=== PATIENT | female | born 1940 | race African-American/Black ===

== ENCOUNTER 2016-10-03 05:16 | Inpatient (IN) | payer MEDICARE, OTHER ==
[2016-10-03] MEDS ORDERED: NS 1,000 ML IV ONE (05:42)
--- NOTE | 2016-10-03 05:57 | EDPRACDOC ---
- General Information Chief Complaint: Bleeding (Rectal &/or other) Stated Complaint: GI BLEED Time Seen by Provider: 10/03/16 05:30 Information Source: Patient, Family Mode of Arrival: Car Home Medications: Home Medications Aspirin (Enteric Coated) [Ecotrin] 324 mg PO .NOW PRN 06/27/16 Levothyroxine [Synthroid, Levoxyl] 25 mcg PO DAILY 06/27/16 Lisinopril [Prinivil] 20 mg PO DAILY 06/27/16 Nitroglycerin [Nitroquick] 0.4 mg SL .NOW PRN 06/27/16 Pravastatin [Pravachol] 80 mg PO HS 06/27/16 Allergies/Adverse Reactions: Allergies Allergy/AdvReac Type Severity Reaction Status Date / Time No Known Allergies Allergy Verified 10/03/16 05:46 - History of Present Illness Onset: [employer] HPI: PT WOKE UP THIS AM WITH RECTAL BLEEDING. PT SAID IT HAD CLOTS AND BLACK STOOL. Bleeding Duration: Reports: Intermittent Bleeding Description: Reports: After Bowel Movement Recent Use Of: Reports: None Relevant History: Reports: GI Bleed Prehospital Care: Reports: None Pain Severity: None Amount of Blood: Reports: Teaspoon(s) Vomitus: Reports: None Stools: Reports: Bright Red Blood, Tarry Black Associated Signs and Symptoms: Reports: None ED Past Medical History - Patient Medical History Cardiac History: Reports: Hypertension, Hypercholesterolemia GI/ History: Reports: Diverticulosis Psychological History: Denies: Depression Surgical History: Reports: Other (COLON RESECTION, COLOSTOMY PLACEMENT AND REVISION) - Social Medical History Smoking Status: Former smoker ETOH: None Substance Abuse: None Lives In: Home EDM Review of Systems - Review of Systems ROS Negative Except as Marked: Yes All systems reviewed and were negative except as marked Gastrointestinal: Melena, Pain, Other (BRBPR) - Physical Exam Constitutional: Alert (Awake), No apparent distress Oriented to: Time, Person, Place Last recorded Vital Signs: Last Vital Signs Temp 97.6 F 10/03/16 05:43 Pulse 57 L 10/03/16 05:43 Resp 18 10/03/16 05:43 BP 148/78 10/03/16 05:43 Pulse Ox 97 10/03/16 05:43 Oxygen Pulse Oxygen Saturation 97 O2 Device Room Air Oxygen Flow Rate Fraction of Inspired Oxygen ( FIO2) - HEENT Head: Normal ( normocephalic) Eye Exam: Normal (PERRL, EOMI, Sclera white) Oropharynx: Normal (Pharynx:Moist without exudate,Gums-no swelling) ENT EAC: Normal TMJ: Normal Nose: No Symptoms Reported (septum midline) Neck: Normal (FROM, trachea at midline) - Respiratory/Cardiovascular Respiratory: Normal - CTA Cardiovascular: Bradycardia - GI Auscultation: Normal (NABS) Palpation: Normal (Soft,No rebound or guarding, non distended) Tenderness: Non tender Meza's Sign: Negative Rectal Exam: Heme positive stool Stool: Gross Blood, Tarry - Musculoskeletal Back: Normal (Non-Tender) Extremities: Normal (Normal tone, Pulses 2+ No cyanosis or edema, FROM) - Integumentary Skin: Normal, Warm, Dry Lymphatics: Normal (no adenopathy) - Neurologic Memory Impaired: Normal Motor Function: Normal (Normal tone, Pulses 2+ No cyanosis or edema, FROM) Cranial Nerve: Normal (CN II-X11 intact sensation, strength 5/5) Cerebellar: Normal Mood Description: Normal Perception: Normal - Results 10/03/16 06:00 10/03/16 06:00 - EKG EKG #1 EKG Time: 05:55 -: Yes EKG interpreted by me Rate: bpm: [place]: Normal Rhythm: NSR, PACs Block: None Hypertrophy: None ST: Normal - Diagnostic Imaging Abdomen Image interpreted by: Radiologist No acute abnormality noted. - Departure Yes I personally saw and evaluated the patient. Disposition: Admit IP To This Hospital Condition: Fair Final Diagnosis: Acute GI bleeding, Acute post-hemorrhagic anemia Education/Counseling Given To: Patient, Family Member Education/Counseling Given Regarding: Diagnosis, Treatment Referrals: None,No Provider [Primary Care Provider] - One Week Prescriptions: No Action Nitroglycerin [Nitroquick] 0.4 mg SL .NOW PRN PRN Reason: Chest Pain Or Discomfort Levothyroxine [Synthroid, Levoxyl] 25 mcg PO DAILY Aspirin (Enteric Coated) [Ecotrin] 324 mg PO .NOW PRN PRN Reason: Chest Pain Or Discomfort Pravastatin [Pravachol] 80 mg PO HS Lisinopril [Prinivil] 20 mg PO DAILY Decision to Admit Time: 07:14 Decision to admit date: 10/03/16 Decision to admit: from ED - Physician Consulted Hospitalist Provider Called: Emanuel Sawyer GI Provider Called: Lb Blake
[2016-10-03] MEDS ORDERED: PANTOPRAZOLE 40 MG VIAL IV ONE (06:08)
[2016-10-03 06:19] LABS: AUTOMATED BASOPHIL 1.4 % (0-2); AUTOMATED EOSINOPHIL 1.4 % (0-5); AUTOMATED LYMPH 48.5 % (17-44); AUTOMATED MONOCYTE 9.1 % (3-10); AUTOMATED NEUTROPHIL 39.6 % (45-76); MPV 8.9 fL (7.4-10.4)
[2016-10-03 06:31] LABS: PARTIAL THROMB. TIME 22.6 SEC (22-35); PT-INR 1.1
[2016-10-03 06:52] LABS: BLOOD UREA NITROGEN 14 MG/DL (7-17); CALC CORRECTED 9.3 MG/DL (8.4-10.2); CALCIUM 9.2 MG/DL (8.4-10.2); CALCULATED OSMOLALITY 260 MOs/Kg (270-290); CHLORIDE 100 mEq/L (98-107); GLUCOSE 77 MG/DL (70-99); SODIUM LEVEL 135 mEq/L (137-146); TOTAL PROTEIN 7.3 G/DL (6.3-8.2)
[2016-10-03 07:03] LABS: LEUKOCYTES/URINE NEG (NEGATIVE); NITRITE/URINE NEG (NEGATIVE); RBC/URINE 0-2 (0-5); URINE OCCULT BLOOD 2+ (NEG/TRACE); WBC/URINE 0-2 (0-5)
--- NOTE | 2016-10-03 07:13 | DIRPT ---
CLINICAL DATA: Rectal bleeding EXAM: DG ABDOMEN ACUTE W/ 1V CHEST COMPARISON: 06/12/2015 FINDINGS: Cardiac shadow is within normal limits. The lungs are clear bilaterally. No acute bony abnormality is seen. Scattered large and small bowel gas is noted. No free air is seen. Mild fecal material is noted. No definitive impaction is seen. Degenerative changes of lumbar spine are noted. IMPRESSION: No acute abnormality noted. Electronically Signed By: Oniel Ko M.D. On: 10/03/2016 07:10
--- NOTE | 2016-10-03 08:15 | HISTPHYS ---
- Chief Complaint Pt reports went to bathroom this AM, noted black stools in toilet. Son reports blood in stools bright red. - History of Present Illness PT WOKE UP THIS AM WITH RECTAL BLEEDING. PT SAID IT HAD CLOTS AND BLACK STOOL. Bleeding Duration: Reports: Intermittent Bleeding Description: Reports: After Bowel Movement Recent Use Of: Reports: None Relevant History: Reports: GI Bleed Prehospital Care: Reports: None Pain Severity: None Amount of Blood: Reports: Teaspoon(s) Vomitus: Reports: None Stools: Reports: Bright Red Blood, Tarry Black Associated Signs and Symptoms: Reports: None Very pleasant 76-year-old female with underlying dementia who presents from home. She lives with her son and granddaughter. This morning at approximately 2:30 a.m. she got up to use the bathroom and noted stool in the toilet covered with blood with clots. Patient's granddaughter alerted her uncle and he came to checked the situation out. The patient was uncomfortable and confused and he brought her into the emergency department. Her history goes back 12 years when she had a bowel obstruction and required an ostomy. That was eventually reversed and she did well until 2011 when she had a GI bleed. She was hospitalized twice for this GI bleed nucleolar scans were on helpful ultimately the bleeding stopped on its own. I believe that the time they felt it was due to diverticulitis. The patient today denies any fevers or chills she has had no abdominal pain and no diarrhea. Given her clinical situation she will be admitted into the hospital for further evaluation and management. Patient's son says that she has been treated in the past by Dr. Hidalgo. We have no records but Dr. Blake is on-call today. - Medical History Cardiac History: Reports: Hypertension, Hypercholesterolemia GI/ History: Reports: Diverticulosis Systemic History: Reports: Hypothyroidism Neurological History: Reports: Dementia (Very mild) Psychological History: Denies: Depression Patient also with a history of bowel obstruction requiring surgery and reversal as below. And episodes of diverticulitis. - Surgical History Reports: Other (COLON RESECTION, COLOSTOMY PLACEMENT AND REVISION) - Medictions/Allergies Allergies No Known Allergies Allergy (Verified 10/03/16 05:46) Current Medication List: Reviewed Home Medications Aspirin (Enteric Coated) [Ecotrin] 324 mg PO .NOW PRN 06/27/16 Levothyroxine [Synthroid, Levoxyl] 25 mcg PO DAILY 06/27/16 Lisinopril [Prinivil] 20 mg PO DAILY 06/27/16 Nitroglycerin [Nitroquick] 0.4 mg SL .NOW PRN 06/27/16 Pravastatin [Pravachol] 80 mg PO HS 06/27/16 - Family History Reports: No Significant History - Social History Travel Outside of [place] in the Last 3 Months?: No Smoking Status: Former smoker Social History: Denies: Alcohol Use, Substance Use Disorder - Review of Systems Constitutional: No Symptoms Reported (No Fever, chills, wt loss/gain, diaphoresis,fatigue/malaise.) Eyes: No Symptoms Reported (No blurry vision, visual changes, eye pain, or eye redness.) Ears: No Symptoms Reported (No ear pain or discharge) Nose: No Symptoms Reported (No nasal discharge/congestion or bleeding) Throat/Neck: No Symptoms Reported (No throat pain or swelling.No oropharyngeal lesions or erythema.) Respiratory: No Symptoms Reported (No cough, wheezing, or shortness of breath.) Cardiovascular: No Symptoms Reported (No chest pain or palpitations.) Genitourinary: No Symptoms Reported (No dysuria or hematuria.) Neurological: Memory Changes Musculoskeletal:: No Symptoms Reported Integumentary: No Symptoms Reported (no rashes or lesions) Allergic/Immunologic: No Symptoms Reported (no rashes or lesions) Hematologic: No Symptoms Reported (No chronic anemia, bleeding, or easy bruising.), Other (Lymphatics- no lymph node swelling or pain.) Endocrine: No Symptoms Reported (No thyroid issues, polyuria, or polydipsia.) Psychiatric: No Symptoms Reported (Fully oriented, with normal and appropriate affect.) - Physical Exam Vital Signs: Initial Vitals Temperature 97.6 F 10/03/16 05:43 Pulse Rate 57 L 10/03/16 05:43 Respiratory Rate 18 10/03/16 05:43 Blood Pressure 148/78 10/03/16 05:43 Pulse Oxygen Saturation 97 10/03/16 05:43 Constitutional: Cachectic. negative: Well nourished, Well appearing Oriented to: Time, Person, Place - HEENT Head: Normal (normocephalic, atraumatic.), Other (No cervical lymphadenopathy. No supraclavicular lymphadenopathy. Neck: No palpable mass, supple , trachea midline.) Eye: Normal (pupils equal, reactive to light, and round; EOMI, Sclera white) Oropharynx: Normal (Pharynx: Moist without exudate,Gums-no swelling, No oropharyngeal lesions or erythema, Mucous membranes are dry.) Nose: No Symptoms Reported (septum midline, Nares patent, without discharge or bleeding.) Respiratory: Normal - CTA (Clear to auscultation bilaterally. No wheezing, rales , rhonchi. Chest wall movements are symmetric. No use of accessory muscles to breathe.) Cardiovascular: Normal (RRR , Normal S1, S2. No murmurs, rubs, or gallops. PMI non-displaced. Carotids: no carotid bruits. No bradycardia or tachycardia. DP pulses 2+ bilaterally.) - GI Auscultation: Normal (normal active sounds) Palpation: Normal (Soft,non distended,nontender. No hepatosplenomegaly.) Tenderness: Non tender (No rebound or guarding) Meza's Sign: Negative - Musculoskeletal Back: Normal (Non-Tender) Extremities: Normal (Normal tone, DP pulses 2+ bilaterally, No cyanosis or edema bilaterally, FROM bilaterally.) - Integumentary Skin: Normal (Clean, dry, and intact. No rashes. No lesions.) Lymphatics: Normal (No cervical lymphadenopathy. No supraclavicular lymphadenopathy.) - Neurologic Memory Impaired: Normal Motor Function: Normal (Motor 5/5 throughout.Normal tone, Pulses 2+ No cyanosis or edema, FROM) Cranial Nerve: Normal (CN II-XII intact sensation, strength 5/5) Cerebellar: Normal (Babinski: toes downgoing bilaterally. Intact Finger to nose. Sensory grossly intact to light touch. Intact rapid alternating movements bilaterally. No pronator drift.) Mood Description: Normal (Fully oriented. Normal and appropriate affect.) Perception: Normal (Normal and appropriate affect.) - Other Exam Other Exam Findings: Laboratory Results - last 24 hr 10/03/16 10/03/16 10/03/16 06:00 06:00 06:00 WBC 3.7 L RBC 3.11 L Hgb 9.3 L Hct 27.4 L MCV 88 MCH 30.1 MCHC 34.1 RDW 15.4 H Plt Count 289 MPV 8.9 Neut % (Auto) 39.6 L Lymph % (Auto) 48.5 H [place] % (Auto) 9.1 Eos % (Auto) 1.4 Baso % (Auto) 1.4 Absolute Neuts (auto) 1.44 L Absolute Lymphs (auto) 1.78 PT 10.8 INR 1.1 APTT 22.6 Sodium 135 L Potassium 3.9 Chloride 100 Carbon Dioxide 27 Anion Gap 12 BUN 14 Creatinine 1.00 Estimated GFR (MDRD) > 60 Glucose 77 Calculated Osmolality 260 L Calcium 9.2 Corrected Calcium 9.3 Total Bilirubin 0.6 AST 31 ALT 28 Alkaline Phosphatase 55 Troponin I < 0.01 Total Protein 7.3 Albumin 3.9 Urine Color Urine Clarity Urine pH Ur Specific [place] Urine Protein Urine Glucose (UA) Urine Ketones Urine Occult Blood Urine Nitrite Urine Bilirubin Urine Urobilinogen Ur Leukocyte Esterase Urine RBC Urine WBC Ur Epithelial Cells Urine Bacteria Blood Type Antibody Screen 10/03/16 10/03/16 06:00 06:41 WBC RBC Hgb Hct MCV MCH MCHC RDW Plt Count MPV Neut % (Auto) Lymph % (Auto) [place] % (Auto) Eos % (Auto) Baso % (Auto) Absolute Neuts (auto) Absolute Lymphs (auto) PT INR APTT Sodium Potassium Chloride Carbon Dioxide Anion Gap BUN Creatinine Estimated GFR (MDRD) Glucose Calculated Osmolality Calcium Corrected Calcium Total Bilirubin AST ALT Alkaline Phosphatase Troponin I Total Protein Albumin Urine Color Pale yellow Urine Clarity Clear Urine pH 8.0 Ur Specific [place] 1.005 Urine Protein Neg Urine Glucose (UA) Neg Urine Ketones Neg Urine Occult Blood 2+ H Urine Nitrite Neg Urine Bilirubin Neg Urine Urobilinogen <2.0 Ur Leukocyte Esterase Neg Urine RBC 0-2 Urine WBC 0-2 Ur Epithelial Cells Occ Urine Bacteria Few Blood Type AB POSITIVE Antibody Screen Negative - Focused CV Perfusion Exam Vital Signs: Last Vital Signs Temp 97.6 F 10/03/16 05:43 Pulse 76 10/03/16 07:52 Resp 20 10/03/16 07:52 BP 171/94 10/03/16 07:52 Pulse Ox 98 10/03/16 07:52 - Lab Results Laboratory Results - last 24 hr 10/03/16 10/03/16 10/03/16 06:00 06:00 06:00 WBC 3.7 L RBC 3.11 L Hgb 9.3 L Hct 27.4 L MCV 88 MCH 30.1 MCHC 34.1 RDW 15.4 H Plt Count 289 MPV 8.9 Neut % (Auto) 39.6 L Lymph % (Auto) 48.5 H [place] % (Auto) 9.1 Eos % (Auto) 1.4 Baso % (Auto) 1.4 Absolute Neuts (auto) 1.44 L Absolute Lymphs (auto) 1.78 PT 10.8 INR 1.1 APTT 22.6 Sodium 135 L Potassium 3.9 Chloride 100 Carbon Dioxide 27 Anion Gap 12 BUN 14 Creatinine 1.00 Estimated GFR (MDRD) > 60 Glucose 77 Calculated Osmolality 260 L Calcium 9.2 Corrected Calcium 9.3 Total Bilirubin 0.6 AST 31 ALT 28 Alkaline Phosphatase 55 Troponin I < 0.01 Total Protein 7.3 Albumin 3.9 Urine Color Urine Clarity Urine pH Ur Specific [place] Urine Protein Urine Glucose (UA) Urine Ketones Urine Occult Blood Urine Nitrite Urine Bilirubin Urine Urobilinogen Ur Leukocyte Esterase Urine RBC Urine WBC Ur Epithelial Cells Urine Bacteria Blood Type Antibody Screen 10/03/16 10/03/16 06:00 06:41 WBC RBC Hgb Hct MCV MCH MCHC RDW Plt Count MPV Neut % (Auto) Lymph % (Auto) [place] % (Auto) Eos % (Auto) Baso % (Auto) Absolute Neuts (auto) Absolute Lymphs (auto) PT INR APTT Sodium Potassium Chloride Carbon Dioxide Anion Gap BUN Creatinine Estimated GFR (MDRD) Glucose Calculated Osmolality Calcium Corrected Calcium Total Bilirubin AST ALT Alkaline Phosphatase Troponin I Total Protein Albumin Urine Color Pale yellow Urine Clarity Clear Urine pH 8.0 Ur Specific [place] 1.005 Urine Protein Neg Urine Glucose (UA) Neg Urine Ketones Neg Urine Occult Blood 2+ H Urine Nitrite Neg Urine Bilirubin Neg Urine Urobilinogen <2.0 Ur Leukocyte Esterase Neg Urine RBC 0-2 Urine WBC 0-2 Ur Epithelial Cells Occ Urine Bacteria Few Blood Type AB POSITIVE Antibody Screen Negative - Assessment (1) Acute GI bleeding K92.2 - GASTROINTESTINAL HEMORRHAGE, UNSPECIFIED Acute Present on Admission: Yes Dr. Blake has been consulted will evaluate the patient in the hospital. Will check serial H&Hs and monitor stools closely for further bleeding. (2) Acute post-hemorrhagic anemia D62 - ACUTE POSTHEMORRHAGIC ANEMIA Acute Present on Admission: Yes Follow serial H&Hs. (3) Diverticulosis K57.90 - DVRTCLOS OF INTEST, PART UNSP, W/O PERF OR ABSCESS W/O BLEED Acute Present on Admission: Yes Qualifiers: Diverticulosis site: diverticulosis of large intestine Diverticulosis bleeding: diverticulosis with bleeding Qualified Code(s): K57.31 - Diverticulosis of large intestine without perforation or abscess with bleeding Patient currently bleeding she does have a history of diverticulosis and this could potentially be a diverticular bleed. Will monitor closely (4) Hypothyroidism E03.9 - HYPOTHYROIDISM, UNSPECIFIED Acute Qualifiers: Hypothyroidism type: acquired Qualified Code(s): E03.9 - Hypothyroidism, unspecified Continue to monitor check TSH. (5) Mild dementia F03.90 - UNSPECIFIED DEMENTIA WITHOUT BEHAVIORAL DISTURBANCE Acute Present on Admission: Yes Stable. - Plan Patient be admitted into the hospital for further evaluation and management of GI bleeding. Case Care Discussed with: Patient, Family, Nursing Staff Total Time: 45 minutes Critical Care: No Couseling Time (>50% in counseling/coordination): No
[2016-10-03] MEDS ORDERED: ONDANSETRON HCL 4 MG/2 ML VIAL IV PRN (08:30)
[2016-10-03] MEDS ORDERED: ACETAMINOPHEN 325 MG/TAB TABLET PO PRN (08:30)
[2016-10-03] MEDS ORDERED: Aluminum;Magnesium;Simethicone 30 ML UDC PO PRN (08:30)
[2016-10-03] MEDS ORDERED: SODIUM CHLORIDE 0.9% 3 ML FLUSH FLUSH PRN (08:30)
[2016-10-03] MEDS ORDERED: Vaccine Screening Complete SCH (10:00)
[2016-10-03] MEDS: NS 1,000 ML IV SCH ×2 (12:15→15:28)
[2016-10-03] MEDS: SODIUM CHLORIDE 0.9% 3 ML FLUSH FLUSH SCH (14:02)
[2016-10-03] MEDS ORDERED: MORPHINE 2 MG/ML INJECTION IV PRN (15:57)
[2016-10-03] MEDS: ALPRAZOLAM 0.25 MG TAB PO PRN (17:15)
[2016-10-04] MEDS: NS 1,000 ML IV SCH ×2 (04:31→16:16)
[2016-10-04] MEDS: SODIUM CHLORIDE 0.9% 3 ML FLUSH FLUSH SCH ×2 (04:32→18:22)
[2016-10-04 06:01] VITALS: BMI 19.3
[2016-10-04 07:12] LABS: AUTOMATED BASOPHIL 1.7 % (0-2); AUTOMATED EOSINOPHIL 4.1 % (0-5); AUTOMATED LYMPH 49.9 % (17-44); AUTOMATED MONOCYTE 10.5 % (3-10); AUTOMATED NEUTROPHIL 33.8 % (45-76); MPV 9.2 fL (7.4-10.4)
[2016-10-04 07:18] LABS: PARTIAL THROMB. TIME 21.7 SEC (22-35); PT-INR 1.1
[2016-10-04 07:37] LABS: BLOOD UREA NITROGEN 11 MG/DL (7-17); CALCIUM 8.2 MG/DL (8.4-10.2); CALCULATED OSMOLALITY 266 MOs/Kg (270-290); CHLORIDE 108 mEq/L (98-107); GLUCOSE 76 MG/DL (70-99); SODIUM LEVEL 139 mEq/L (137-146)
[2016-10-04] MEDS ORDERED: FLU VACCINE (Afluria) 0.5 ML DOSE IM ONE (08:00)
[2016-10-04] MEDS ORDERED: PNEUMOCOCCAL 0.5 ML VIAL IM ONE (08:00)
[2016-10-04] MEDS ORDERED: DIPHENHYDRAMINE 50 MG/ML VIAL IV ONE (08:31)
[2016-10-04] MEDS ORDERED: ACETAMINOPHEN 325 MG/TAB TABLET PO ONE (08:31)
[2016-10-04] MEDS: LEVOTHYROXINE 25 MCG (0.025 MG) TAB PO SCH (09:10)
--- NOTE | 2016-10-04 11:14 | GENMEDPROG ---
Subjective Note: Patient with no new complaints. Hemoglobin dropped overnight she had several bloody bowel movements. Notes Reviewed: Yes Events from last night noted and discussed with Clinical Staff Current Medication List: Reviewed Currently: Denies: Constipation, Diarrhea, Nausea and Vomiting, Abdominal Pain, Ambulating DVT Prophylaxis: Yes - Physical Examination Vital Signs and I&O: Last Vital Signs Temp 98.3 F 10/04/16 09:49 Pulse 69 10/04/16 09:49 Resp 19 10/04/16 09:49 BP 134/60 10/04/16 09:49 Pulse Ox 100 10/04/16 09:49 Oxygen Pulse Oxygen Saturation 100 O2 Device Room Air Oxygen Flow Rate Fraction of Inspired Oxygen ( FIO2) Intake & Output 10/01/16 10/02/16 10/03/16 10/04/16 23:59 23:59 23:59 23:59 Intake Total 2088 694 Output Total 1700 1550 Balance 388 -856 Patient's weight 47.899 kg 46.38 kg General: Alert, Oriented x3, No acute distress, Well appearing, Well nourished HEENT: Normal (Normocephalic, atraumatic;EOMI.Sclera white, Nares patent, without discharge or bleeding. No oropharyngeal lesions or erythema. Mucous membranes are dry.) Neck: Non-tender, Full range of motion, Normal Trachea alignment, Normal inspection (No cervical lymphadenopathy. No supraclavicular lymphadenopathy.), No Masses palpable, Supple Lymphatics: Normal (No cervical lymphadenopathy. No supraclavicular lymphadenopathy.) Respiratory: Normal - CTA (Clear to auscultation bilaterally. No wheezing, rales , rhonchi. Chest wall movements are symmetric. No use of accessory muscles to breathe.) Cardiovascular: Regular rate and rhythm (No bradycardia or tachycardia), Normal S1, No Gallops,Rubs/Murmurs, Normal S2, Good Pedal Pulses (DP pulses 2+ bilaterally) GI: Normal bowel sounds, Soft, Non tender, No hepatospenomegaly, No masses Extremities/Musculoskeletal: Normal pulses (DP pulses 2+ bilaterally) Skin: Warm,Dry and Intact, No rashes, No significant lesion Neurological: Strength at 5/5 X4 ext (Motor 5/5 throughout.), Normal tone, Cranial nerves 3-12 NL ( 2-12 grossly intact.) Lab/DI/Studies Reviewed: Abnormal Lab Results 10/03/16 10/03/16 10/03/16 06:00 15:47 16:20 RBC Hgb 8.5 L Hct 25.8 L RDW Neut % (Auto) Lymph % (Auto) [place] % (Auto) Absolute Neuts (auto) PT APTT Chloride Calculated Osmolality Calcium Stool Occult Blood Pos H Crossmatch See Detail 10/04/16 10/04/16 10/04/16 06:17 06:17 06:17 RBC 2.39 L Hgb 7.2 L D Hct 21.3 L RDW 15.6 H Neut % (Auto) 33.8 L Lymph % (Auto) 49.[address] [place] % (Auto) 10.5 H Absolute Neuts (auto) 1.29 L PT 11.4 H APTT 21.7 L Chloride 108 H Calculated Osmolality 266 L Calcium 8.2 L Stool Occult Blood Crossmatch - Assessment (1) Acute GI bleeding Acute K92.2 - GASTROINTESTINAL HEMORRHAGE, UNSPECIFIED Comment/Plan: Dr. Blake has been consulted will evaluate the patient in the hospital. Will check serial H&Hs and monitor stools closely for further bleeding. Await evaluation. (2) Acute post-hemorrhagic anemia Acute D62 - ACUTE POSTHEMORRHAGIC ANEMIA Comment/Plan: Hemoglobin has decreased significantly today. Will transfuse 2 units of packed red blood cells. (3) Diverticulosis Acute K57.90 - DVRTCLOS OF INTEST, PART UNSP, W/O PERF OR ABSCESS W/O BLEED Qualifiers: Diverticulosis site: diverticulosis of large intestine Diverticulosis bleeding: diverticulosis with bleeding Qualified Code(s): K57.31 - Diverticulosis of large intestine without perforation or abscess with bleeding Comment/Plan: Patient currently bleeding she does have a history of diverticulosis and this could potentially be a diverticular bleed. Will monitor closely (4) Hypothyroidism Acute E03.9 - HYPOTHYROIDISM, UNSPECIFIED Qualifiers: Hypothyroidism type: acquired Qualified Code(s): E03.9 - Hypothyroidism, unspecified Comment/Plan: TSH slightly elevated. Will continue to monitor. Suggest recheck in 1 month. If still elevated would recommend increasing dose of Synthroid. (5) Mild dementia Acute F03.90 - UNSPECIFIED DEMENTIA WITHOUT BEHAVIORAL DISTURBANCE Comment/ Plan: Stable. - Plan Await evaluation from GI. Case Care Discussed with: Patient, Nursing Staff Education/Counseling Given To: Patient Education/Counseling Given Regarding: Diagnosis, Treatment, Prognosis Total Time: 45 min Critical Care: No Couseling Time (>50% in counseling/coordination): No
[2016-10-04] MEDS: FUROSEMIDE 20 MG/2 ML VIAL IV SCH ×2 (14:19→18:41)
--- NOTE | 2016-10-04 15:40 | PCM.CONSGI ---
Consult Date: 10/04/16 Consult Requesting Physician: Jose Rocha - History of Present Illness Ms Bruce is a 76-year-old female with history of diverticular bleeding in the past bowel obstruction who presented with bloody stools. Patient is status post transfusion therapy. She continues to be anemic Ms. King does have a history of chronic constipation. She takes senna on a daily basis. She has had at least 2 prior episodes of diverticular bleeding. She was admitted to [facility] during both episodes. She had 2 attempts at embolization per the son's report. Both were unsuccessful. She did have a prolonged hospitalization with her bleeding. He also reports that she had a colonoscopy approximately 1 year ago in [place] and he feels results were relatively unremarkable. Over the last year she has had problem with constipation. She takes senna on a daily basis. She has not had any subsequent bleeding. She went to the bathroom the a.m. on the day of her admission. She was noted to have bright red blood on the toilet seat. Because of her history of bleeding she was brought to the emergency room. She was anemic. The family reported blood clots in the toilet. She has had somewhat the melanotic to abimbola colored stools in the hospital. She has had no bowel movement for the last day. She has had a marked fall in her hemoglobin with hydration. She has required blood transfusion. She is not reporting any abdominal pain. The son reports that she has no history of ulcer disease. She does not take acid suppression medication. Her appetite has been good her weight has been stable. She is to refrain from a somewhat progressive dementia per the son. She was admitted to the hospital and apparently Dr. Blake was consulted. He has not seen the patient and so I was consulted today. - Past Medical History Cardiac History: Reports: Hypertension GI/ History: Reports: Chronic Constipation, Diverticulosis Systemic History: Reports: Hypothyroidism Neurological History: Reports: Dementia (Very mild) Psychological History: Denies: Alcoholism, Substance Use Disorder - Surgical History Past Surgical History: Reports: Bowel Surgery (For intestinal obstruction with a colostomy placed per son's report) - Procedure History Procedure History: Reports: Colonoscopy - Allergies Allergies No Known Allergies Allergy (Verified 10/03/16 09:44) - Medications Home Medications Levothyroxine [Synthroid, Levoxyl] 25 mcg PO DAILY 06/27/16 Lisinopril [Prinivil] 20 mg PO DAILY 06/27/16 Nitroglycerin [Nitroquick] 0.4 mg SL .NOW PRN 06/27/16 Pravastatin [Pravachol] 80 mg PO HS 06/27/16 Aspirin/Calcium Carbonate/Mag [Aspirin Buffered 325 mg Tab] 325 mg PO DAILY - Social History Smoking Status: Former smoker Social History: Denies: Alcohol Use, Substance Use Disorder - Review of Systems Constitutional: Weakness. negative: Chills, Fever, Weight gain, Weight loss Eyes: negative: Double Vision Throat: negative: Hoarseness Nose: negative: Congestion Respiratory: negative: Cough, Hemoptysis, Shortness of Breath Cardiovascular: negative: Chest Pain, Edema Gastrointestinal: Constipation, Hematochezia. negative: Nausea, Vomiting, Abdominal Pain, Heartburn Genitourinary: negative: Hematuria Neurological: Gait Difficulty, Memory Changes Musculoskeletal: Arthritis Integumentary: negative: Bruising Allergic/Immunologic: negative: Itching Hematologic: negative: Easy Bruising Psychiatric: negative: Anxiety - Exam Vital Signs: Temperature: 97.8 F (10/04/16 15:17) HR: 73 (10/04/16 15:17) RR: 20 (10/04/16 15:17) BP: 138/85 (10/04/16 15:17) Pulse Ox: 100 (10/04/16 15:17) General: Alert, Oriented x3, No acute distress HEENT: negative: Icteric Sclera Respiratory: Normal - CTA. negative: Accessory Muscle Use Cardiovascular: Regular rate Gastrointestinal: Soft, Bowel Sounds. negative: Distended, Tender, Hepatosplenomegaly Rectal Exam: Other (No external hemorrhoids tone was normal abimbola to black stool in the rectal vault). negative: Anal Fissure, Mass Skin: Warm,Dry and Intact Neurological: Normal speech Psych/Mental Status: Appropriate, Cooperative, Other (Very poor historian) - Labs Result Diagrams: 10/04/16 06:17 10/04/16 06:17 Laboratory Tests 10/03/16 10/03/16 10/03/16 06:00 06:00 06:00 Hgb 9.3 L Hct 27.4 L MCV 88 PT INR Total Bilirubin 0.6 AST 31 ALT 28 Alkaline Phosphatase 55 Total Protein 7.3 Albumin 3.9 TSH 8.99 H Stool Occult Blood 10/03/16 10/03/16 10/04/16 15:47 16:20 06:17 Hgb 8.5 L Hct 25.8 L MCV PT 11.4 H INR 1.1 Total Bilirubin AST ALT Alkaline Phosphatase Total Protein Albumin TSH Stool Occult Blood Pos H - Assessment and Plan (1) Hypertension Acute I10 - ESSENTIAL (PRIMARY) HYPERTENSION H (2) Diverticulosis Acute K57.90 - DVRTCLOS OF INTEST, PART UNSP, W/O PERF OR ABSCESS W/O BLEED diverticulosis of large intestine diverticulosis with bleeding K57.31 - Diverticulosis of large intestine without perforation or abscess with bleeding (3) Hypothyroidism Acute E03.9 - HYPOTHYROIDISM, UNSPECIFIED acquired E03.9 - Hypothyroidism, unspecified (4) Mild dementia Acute F03.90 - UNSPECIFIED DEMENTIA WITHOUT BEHAVIORAL DISTURBANCE Recommendations: 1. Continue to monitor hemoglobin and for active bleeding 2. Hydration 3. Ppi therapy for now 4. Transfuse as needed 5. Obtain old records 6. I will follow with you Discussed the patient with her son Tung Bruce. He reviewed her prior GI history. Given her age and recent colonoscopy if bleeding stops hopefully conservative approach will be appropriate. If the bleeding continues we did discuss possible need for repeating colonoscopy. He was agreeable with the plan.
[2016-10-04] MEDS: PEG-ELECTROLYTE 17 GM PACK PO SCH ×2 (18:21→21:33)
[2016-10-04] MEDS: PANTOPRAZOLE 40 MG TAB PO SCH (18:23)
[2016-10-04] MEDS: ALPRAZOLAM 0.25 MG TAB PO PRN (20:39)
[2016-10-05] MEDS: NS 1,000 ML IV SCH ×3 (02:01→14:56)
[2016-10-05] MEDS: PANTOPRAZOLE 40 MG TAB PO SCH (05:08)
[2016-10-05] MEDS: SODIUM CHLORIDE 0.9% 3 ML FLUSH FLUSH SCH ×2 (05:09→16:57)
[2016-10-05 07:30] LABS: AUTOMATED EOSINOPHIL 2.7 % (0-5); AUTOMATED LYMPH 33.3 % (17-44); AUTOMATED MONOCYTE 10.8 % (3-10); AUTOMATED NEUTROPHIL 52.2 % (45-76)
--- NOTE | 2016-10-05 07:55 | PCM.GIPROG ---
Progress Note (GI) Chief Complaint: Ms Bruce is a 76-year-old female with history of diverticular bleeding in the past bowel obstruction who presented with bloody stools. Patient is status post transfusion therapy. She continues to be anemic but increased with her transfusion therapy. She is not reporting any abdominal pain. A discuss the case with the son he is comfortable with a conservative approach for bleeding continues to courtney. We will attempt to obtain her old records today. - Physical Exam Vital Signs: Temperature: 97.4 F (10/05/16 05:51) HR: 62 (10/05/16 05:51) RR: 18 (10/05/16 05:51) BP: 150/89 (10/05/16 05:51) Pulse Ox: 97 (10/05/16 05:51) General: Alert, Oriented x3. negative: No acute distress HEENT: negative: Icteric Sclera Respiratory: negative: Accessory Muscle Use Gastrointestinal: Soft, Bowel Sounds. negative: Distended, Tender Extremities: negative: Edema Skin: Warm,Dry and Intact Neurological: Normal speech Psych/Mental Status: Appropriate Result Diagrams: 10/05/16 06:25 10/04/16 06:17 Additional Lab/DI Findings: Laboratory Tests 10/03/16 10/04/16 10/04/16 16:20 06:17 23:40 Hgb 8.5 L 7.2 L D 10.5 L D - Impression and Plan (1) Acute GI bleeding Acute K92.2 - GASTROINTESTINAL HEMORRHAGE, UNSPECIFIED Present on Admission: Yes (2) Diverticulosis Acute K57.90 - DVRTCLOS OF INTEST, PART UNSP, W/O PERF OR ABSCESS W/O BLEED Present on Admission: Yes diverticulosis of large intestine diverticulosis with bleeding K57.31 - Diverticulosis of large intestine without perforation or abscess with bleeding Comment: Patient currently bleeding she does have a history of diverticulosis and this could potentially be a diverticular bleed. Will monitor closely (3) Hypothyroidism Acute E03.9 - HYPOTHYROIDISM, UNSPECIFIED acquired E03.9 - Hypothyroidism, unspecified Comment: TSH slightly elevated. Will continue to monitor. Suggest recheck in 1 month. If still elevated would recommend increasing dose of Synthroid. (4) Mild dementia Acute F03.90 - UNSPECIFIED DEMENTIA WITHOUT BEHAVIORAL DISTURBANCE Present on Admission: Yes Comment: Stable. (5) Hypertension Acute I10 - ESSENTIAL (PRIMARY) HYPERTENSION Plan: 1. Continue to monitor hemoglobin 2. Advance diet 3. Try to obtain prior records 4. Continue care for other medical problems 5. I will continue to follow with you
[2016-10-05] MEDS ORDERED: FLU VACCINE (Afluria) 0.5 ML DOSE IM ONE (08:00)
[2016-10-05] MEDS ORDERED: PNEUMOCOCCAL 0.5 ML VIAL IM ONE (08:00)
[2016-10-05] MEDS: LEVOTHYROXINE 25 MCG (0.025 MG) TAB PO SCH (08:18)
--- NOTE | 2016-10-05 13:23 | GENMEDPROG ---
Chief Complaint: Diverticular bleeding Subjective Note: Doing well, was transfused 2 units of blood earlier. She denies any abdominal pain, nausea or vomiting. Notes Reviewed: Yes Events from last night noted and discussed with Clinical Staff Current Medication List: Reviewed Currently: Denies: Constipation, Diarrhea, Nausea and Vomiting, Abdominal Pain, Ambulating DVT Prophylaxis: Yes - Physical Examination Vital Signs and I&O: Last Vital Signs Temp 97.4 F L 10/05/16 05:51 Pulse 62 10/05/16 05:51 Resp 18 10/05/16 05:51 BP 150/89 10/05/16 05:51 Pulse Ox 97 10/05/16 05:51 Oxygen Pulse Oxygen Saturation 97 O2 Device Room Air Oxygen Flow Rate Fraction of Inspired Oxygen ( FIO2) Intake & Output 10/03/16 10/04/16 10/05/16 10/06/16 06:59 06:59 06:59 06:59 Intake Total 2662 2109 240 Output Total 2450 6440 1100 Balance 332 -0554 -414 Patient's weight 46.38 kg 44.407 kg General: Alert, Oriented x3. negative: No acute distress HEENT: EOMI (Sclera white) Neck: Normal Trachea alignment, Normal inspection Respiratory: negative: Accessory Muscle Use Cardiovascular: Regular rate, No Gallops,Rubs/Murmurs GI: Normal bowel sounds, Soft, Non tender (non distended) Extremities/Musculoskeletal: negative: Edema Skin: Warm,Dry and Intact Neurological: Cranial Nerves (II-XII intact) Psych/Mental Status: Normal Affect (Fully oriented, Norla and appropriate affect ) Lab/DI/Studies Reviewed: Laboratory Tests 10/04/16 10/04/16 10/05/16 06:17 23:40 06:25 Hgb 7.2 L D 10.5 L D 10.9 L - Assessment (1) Acute GI bleeding Acute K92.2 - GASTROINTESTINAL HEMORRHAGE, UNSPECIFIED Comment/Plan: Likely diverticular. Gastroenterology following. (2) Acute post-hemorrhagic anemia Acute D62 - ACUTE POSTHEMORRHAGIC ANEMIA Comment/Plan: Hemoglobin now stable after transfusion of 2 units of red blood cells yesterday. (3) Diverticulosis Acute K57.90 - DVRTCLOS OF INTEST, PART UNSP, W/O PERF OR ABSCESS W/O BLEED Qualifiers: Diverticulosis site: diverticulosis of large intestine Diverticulosis bleeding: diverticulosis with bleeding Qualified Code(s): K57.31 - Diverticulosis of large intestine without perforation or abscess with bleeding Comment/Plan: Patient no longer bleeding she does have a history of diverticulosis and this could potentially have been a diverticular bleed. Will monitor closely (4) Hypertension Acute I10 - ESSENTIAL (PRIMARY) HYPERTENSION (5) Hypothyroidism Acute E03.9 - HYPOTHYROIDISM, UNSPECIFIED Qualifiers: Hypothyroidism type: acquired Qualified Code(s): E03.9 - Hypothyroidism, unspecified Comment/Plan: TSH slightly elevated. Will continue to monitor. Suggest recheck in 1 month. If still elevated would recommend increasing dose of Synthroid. (6) Mild dementia Acute F03.90 - UNSPECIFIED DEMENTIA WITHOUT BEHAVIORAL DISTURBANCE Comment/ Plan: Stable. Case Care Discussed with: Patient, Nursing Staff Total Time: 41
[2016-10-05] MEDS: ALPRAZOLAM 0.25 MG TAB PO PRN ×2 (13:31→20:45)
[2016-10-06] MEDS: ALPRAZOLAM 0.25 MG TAB PO PRN ×2 (03:34→20:28)
[2016-10-06] MEDS: NS 1,000 ML IV SCH ×2 (05:10→10:32)
[2016-10-06] MEDS: SODIUM CHLORIDE 0.9% 3 ML FLUSH FLUSH SCH ×2 (05:10→16:11)
[2016-10-06] MEDS: PANTOPRAZOLE 40 MG TAB PO SCH (05:10)
[2016-10-06 07:33] LABS: MPV 9.1 fL (7.4-10.4)
--- NOTE | 2016-10-06 07:36 | PCM.GIPROG ---
Progress Note (GI) Chief Complaint: Ms Bruce is a 76-year-old female with history of diverticular bleeding in the past and surgery for a bowel obstruction who presented with bloody stools. Patient is status post transfusion therapy. Her hemoglobin is stable post transfusion therapy. She is not reporting any abdominal pain. She is upset and crying today reported she does not know what's going on. Will attempt to obtain her old records. She did have 3 bowel movements 1 recorded is bloody yesterday her labs from today are still pending. Will advance her diet and encourage ambulation - Physical Exam Vital Signs: Temperature: 97.8 F (10/06/16 06:15) HR: 72 (10/06/16 06:15) RR: 18 (10/06/16 06:15) BP: 156/68 (10/06/16 06:15) Pulse Ox: 97 (10/06/16 06:15) General: Alert, Oriented x3, Mild distress HEENT: negative: Icteric Sclera Respiratory: negative: Accessory Muscle Use Gastrointestinal: Soft, Bowel Sounds. negative: Distended, Tender Skin: Warm,Dry and Intact Neurological: Normal speech Result Diagrams: 10/05/16 23:20 10/04/16 06:17 Additional Lab/DI Findings: Laboratory Tests 10/05/16 10/05/16 10/05/16 06:25 15:40 23:20 Hgb 10.9 L 10.1 L 10.0 L - Impression and Plan (1) Acute GI bleeding Acute K92.2 - GASTROINTESTINAL HEMORRHAGE, UNSPECIFIED Present on Admission: Yes Comment: Likely diverticular. (2) Diverticulosis Acute K57.90 - DVRTCLOS OF INTEST, PART UNSP, W/O PERF OR ABSCESS W/O BLEED Present on Admission: Yes diverticulosis of large intestine diverticulosis with bleeding K57.31 - Diverticulosis of large intestine without perforation or abscess with bleeding (3) Hypothyroidism Acute E03.9 - HYPOTHYROIDISM, UNSPECIFIED acquired E03.9 - Hypothyroidism, unspecified (4) Mild dementia Acute F03.90 - UNSPECIFIED DEMENTIA WITHOUT BEHAVIORAL DISTURBANCE Present on Admission: Yes Comment: Stable. (5) Hypertension Acute I10 - ESSENTIAL (PRIMARY) HYPERTENSION Plan: 1. Awaiting labs today 2. Advanced diet 3. Increased activity 4. Monitor for recurrent bleeding 5. Continue MiraLax today
[2016-10-06] MEDS ORDERED: FLU VACCINE (Afluria) 0.5 ML DOSE IM ONE (08:00)
[2016-10-06] MEDS ORDERED: PNEUMOCOCCAL 0.5 ML VIAL IM ONE (08:00)
--- NOTE | 2016-10-06 09:00 | GENMEDPROG ---
Chief Complaint: Diverticular bleed Subjective Note: Had 1/3 bowel movements was bloody yesterday. She has no acute complaints. Notes Reviewed: Yes: Events from last night noted and discussed with Clinical Staff Current Medication List: Reviewed Currently: Denies: Constipation, Diarrhea, Nausea and Vomiting, Abdominal Pain, Ambulating DVT Prophylaxis: Yes - Physical Examination Vital Signs and I&O: Last Vital Signs Temp 97.8 F 10/06/16 06:15 Pulse 72 10/06/16 06:15 Resp 18 10/06/16 06:15 BP 156/68 10/06/16 06:15 Pulse Ox 97 10/06/16 06:15 Oxygen Pulse Oxygen Saturation 97 O2 Device Room Air Oxygen Flow Rate Fraction of Inspired Oxygen ( FIO2) Intake & Output 10/04/16 10/05/16 10/06/16 10/07/16 06:59 06:59 06:59 06:59 Intake Total 2662 2109 2370 Output Total 2450 9940 3050 500 Balance 054 -2057 -680 -500 Patient's weight 46.38 kg 44.407 kg 44.509 kg General: Alert, Oriented x3, Mild distress HEENT: EOMI (Sclera white) Neck: Normal Trachea alignment, Normal inspection Respiratory: negative: Accessory Muscle Use Cardiovascular: Regular rate, No Gallops,Rubs/Murmurs GI: Normal bowel sounds, Soft, Non tender (non distended) Extremities/Musculoskeletal: Other (Normal Tone). negative: Edema, Cyanosis Skin: Warm,Dry and Intact Lab/DI/Studies Reviewed: Laboratory Tests 10/05/16 10/05/16 10/06/16 15:40 23:20 06:47 WBC 4.9 Hgb 10.1 L 10.0 L 10.0 L - Assessment (1) Acute GI bleeding Acute K92.2 - GASTROINTESTINAL HEMORRHAGE, UNSPECIFIED Comment/Plan: Likely diverticular. Hemoglobin has been stable after blood transfusion on the . (2) Acute post-hemorrhagic anemia Acute D62 - ACUTE POSTHEMORRHAGIC ANEMIA Comment/Plan: Hemoglobin now stable after transfusion of 2 units of red blood cells October 04. (3) Diverticulosis Acute K57.90 - DVRTCLOS OF INTEST, PART UNSP, W/O PERF OR ABSCESS W/O BLEED Qualifiers: Diverticulosis site: diverticulosis of large intestine Diverticulosis bleeding: diverticulosis with bleeding Qualified Code(s): K57.31 - Diverticulosis of large intestine without perforation or abscess with bleeding (4) Hypertension Acute I10 - ESSENTIAL (PRIMARY) HYPERTENSION (5) Hypothyroidism Acute E03.9 - HYPOTHYROIDISM, UNSPECIFIED Qualifiers: Hypothyroidism type: acquired Qualified Code(s): E03.9 - Hypothyroidism, unspecified (6) Mild dementia Acute F03.90 - UNSPECIFIED DEMENTIA WITHOUT BEHAVIORAL DISTURBANCE Comment/ Plan: Stable. - Plan Continue present supportive care, gastroenterology is following. They are obtaining her outside records, continue observation.
[2016-10-06] MEDS: LEVOTHYROXINE 25 MCG (0.025 MG) TAB PO SCH (09:01)
[2016-10-06] MEDS ORDERED: PEG-ELECTROLYTE 17 GM PACK PO PRN (12:00)
[2016-10-06] MEDS ORDERED: HALOPERIDOL 5 MG/ML VIAL IM PRN (22:54)
[2016-10-06] MEDS ORDERED: HALOPERIDOL 5 MG/ML VIAL IM ONE (22:54)
[2016-10-07] MEDS: PANTOPRAZOLE 40 MG TAB PO SCH (05:35)
[2016-10-07 07:17] LABS: MPV 9.3 fL (7.4-10.4)
[2016-10-07] MEDS: LEVOTHYROXINE 25 MCG (0.025 MG) TAB PO SCH (08:55)
[2016-10-07 14:01] VITALS: BP 148/72; PULSE 96; TEMP 98.7
--- NOTE | 2016-10-07 14:29 | PCM.DCS92 ---
- Final/Secondary Discharge Diagnosis (1) Acute GI bleeding Acute K92.2 - GASTROINTESTINAL HEMORRHAGE, UNSPECIFIED Present on Admission: Yes Comment: Likely diverticular. Hemoglobin has been stable after blood transfusion on the . No bloody BMs in last 24 hours, ready for dc home today, d/w Dr. Hidalgo. High fiber diet, PPI therapy, Miralax. (2) Acute post-hemorrhagic anemia Acute D62 - ACUTE POSTHEMORRHAGIC ANEMIA Present on Admission: Yes Comment: Hemoglobin now stable after transfusion of 2 units of red blood cells October 04. (3) Diverticulosis Acute K57.90 - DVRTCLOS OF INTEST, PART UNSP, W/O PERF OR ABSCESS W/O BLEED Present on Admission: Yes diverticulosis of large intestine diverticulosis with bleeding K57.31 - Diverticulosis of large intestine without perforation or abscess with bleeding (4) Hypertension Acute I10 - ESSENTIAL (PRIMARY) HYPERTENSION (5) Hypothyroidism Acute E03.9 - HYPOTHYROIDISM, UNSPECIFIED acquired E03.9 - Hypothyroidism, unspecified (6) Mild dementia Acute F03.90 - UNSPECIFIED DEMENTIA WITHOUT BEHAVIORAL DISTURBANCE Present on Admission: Yes Comment: Stable. Discharge Disposition: Home Discharge Condition: Good Cognitive Discharge Status: Unimpaired Fuctional Discharge Status: Independent Physician Follow up/Referrals: None,No Provider [Family Provider] - One Week Home Medications / New Prescriptions: New PEG-Electrolytes (Miralax) [Miralax] 17 gm PO DAILY@1200 PRN #30 pack PRN Reason: Constipation Pantoprazole Sodium [Protonix] 40 mg PO 0600 #30 tablet Continue Nitroglycerin [Nitroquick] 0.4 mg SL .NOW PRN PRN Reason: Chest Pain Or Discomfort Levothyroxine [Synthroid, Levoxyl] 25 mcg PO DAILY Pravastatin [Pravachol] 80 mg PO HS Discontinued Lisinopril [Prinivil] 20 mg PO DAILY Aspirin/Calcium Carbonate/Mag [Aspirin Buffered 325 mg Tab] 325 mg PO DAILY O2 Device: Room Air Diet at Discharge: High Fiber Activity: No Restrictions - DC Summary Notes HPI/Notes: This is a pleasantly demented 76-year-old female was admitted to the hospital with rectal bleeding. She was transfused 2 units of blood on October 04, and seen in consultation by her label drier Dr. Hidalgo. Her hemoglobin has remained stable, she has had no more bloody bowel movements in the last 24 hours, and she is ready for discharge home today with family. Please see the hospital problems and discharge problems above for details of the hospital course including diagnostics and treatment. The plan of care including medications, prognosis, follow-up including alarm symptoms for which medical care should be sought were reviewed with the patient and any available family members/caretakers. The patient is agreeable to discharge today, and all questions were answered by me to their satisfaction. Hospital Course Note:: Discharge summary on patient named SHERICE CREWS admitted to [facility] on 10/03/16 by Catie Fenton MD. Date of discharge is []. - Physical Exam Vital Signs: Last Vital Signs Temp 98.7 F 10/07/16 14:00 Pulse 96 10/07/16 14:00 Resp 18 10/07/16 14:00 BP 148/72 10/07/16 14:00 Pulse Ox 99 10/07/16 14:00 Oxygen Pulse Oxygen Saturation 99 O2 Device Room Air Oxygen Flow Rate Fraction of Inspired Oxygen ( FIO2) Constitutional: No apparent distress. negative: Well nourished, Well appearing Oriented to: Time, Person, Place - HEENT Head: Normal (normocephalic,atraumatic) Eye: Normal (pupils equal, reactive to light, and round; EOMI, Sclera white) Oropharynx: Normal (Pharynx: Moist without exudate,Gums-no swelling, No oropharyngeal lesions or erythema, Mucous membranes are dry.) Tympanic Membrane: Normal (no discharge) ENT EAC: Normal (No oropharyngeal lesions or erythema. Mucous membranes are dry. ) TMJ: Normal Nose: negative: Congestion - Respiratory/Cardiovascular Respiratory: Normal - CTA. negative: Accessory Muscle Use Cardiovascular: Normal (RRR , Normal S1, S2. No murmurs, rubs, or gallops. PMI non-displaced. Carotids: no carotid bruits. No bradycardia or tachycardia. DP pulses 2+ bilaterally.) - GI Auscultation: Normal (normal active sounds) Palpation: Normal (Soft,non distended,nontender. No hepatosplenomegaly.) Tenderness: Non tender (No rebound or guarding) Meza's Sign: Negative - Musculoskeletal Back: Normal (Non-Tender) Extremities: Normal (Normal tone, DP pulses 2+ bilaterally, No cyanosis or edema bilaterally, FROM bilaterally.) - Integumentary Lymphatics: Normal (No cervical lymphadenopathy. No supraclavicular lymphadenopathy.) - Neurologic Memory Impaired: Normal Cerebellar: Normal (Babinski: toes downgoing bilaterally. Intact Finger to nose. Sensory grossly intact to light touch. Intact rapid alternating movements bilaterally. No pronator drift.) Mood Description: Normal (Fully oriented. Normal and appropriate affect.) Perception: Normal (Normal and appropriate affect.)
== END 2016-10-07 16:26 | disposition home or self-care (01) | DRG 378 ==
LOC: ED 05:16 → MPS3 08:30
PROVIDERS: ADMIT Hospitalist; ATTEND Internal Medicine
PROC: 30233N1 Transfusion of Nonautologous Red Blood Cells into Peripheral Vein, Percutaneous Approach (ICD-10-PCS; principal; 2016-10-03)
DX: K57.31 Diverticulosis of large intestine without perforation or abscess with bleeding (principal); D62 Acute posthemorrhagic anemia; F03.90 Unspecified dementia, unspecified severity, without behavioral disturbance, psychotic disturbance, mood disturbance, and anxiety; I10 Essential (primary) hypertension; E03.9 Hypothyroidism, unspecified; E78.00 Pure hypercholesterolemia, unspecified; Z79.82 Long term (current) use of aspirin; Z79.899 Other long term (current) drug therapy; Z87.891 Personal history of nicotine dependence
CPT/HCPCS: 36415; 36430; 74022; 80048; 80053; 81001; 82270; 82272; 84443; 84484; 85014; 85018; 85025; 85027; 85610; 85730; 86850; 86900; 86901; 86920; 87086; 90471; 90656; 90732; 93005; 96360; 96361; 96372; 97161; 99284; E0710; G0237; J1200; J1630; J1940; J3490; P9016; S0164